=== PATIENT | female | born 1980 | race Two or more races ===

== ENCOUNTER 2019-10-11 08:15 | Inpatient (IN) | payer OTHER ==
[~2019-10-11] VITALS: Ht 170.2 cm; Wt 3.6 kg
[2019-10-14] MEDS ORDERED: PRENATAL CAPLE1 EAC1 PO (06:31)
[2019-10-14] MEDS ORDERED: CHILDREN'S ASPI81 MG PO (06:32)
[2019-10-17] MEDS ORDERED: COLACE100 MG PO (18:14)
[2019-10-17] MEDS ORDERED: IBU800 MG PO (18:14)
[2019-10-17] MEDS ORDERED: SIMETHICONE125 M1 PO (18:15)
== END 2019-10-17 18:22 | DRG 785 ==
LOC: O/R 10-14 05:45 → OB/GYN 10-14 05:45 → LDR 10-14 07:15 → OB/GYN 10-14 13:52
PROVIDERS: ADMIT Specialist
PROC: 0UB70ZZ Excision of Bilateral Fallopian Tubes, Open Approach (ICD-10-PCS; 2019-10-14)
PROC: 4A1HXCZ Monitoring of Products of Conception, Cardiac Rate, External Approach (ICD-10-PCS; 2019-10-14)
PROC: 10D00Z1 Extraction of Products of Conception, Low, Open Approach (ICD-10-PCS; principal; 2019-10-14 07:15)
DX: O82 Encounter for cesarean delivery without indication (principal); O34.211 Maternal care for low transverse scar from previous cesarean delivery; O99.213 Obesity complicating pregnancy, third trimester; E66.01 Morbid (severe) obesity due to excess calories; Z22.330 Carrier of Group B streptococcus; Z30.2 Encounter for sterilization; Z3A.39 39 weeks gestation of pregnancy; Z37.0 Single live birth

== ENCOUNTER 2024-06-27 12:17 | Emergency (ER) | payer OTHER ==
[~2024-06-27] VITALS: Ht 170.2 cm; Wt 156.9 kg
[~2024-06-27 12:17] MED LIST: CHILDREN'S ASPI81 MG PO; COLACE100 MG PO; IBU800 MG PO; PRENATAL CAPLE1 EAC1 PO; SIMETHICONE125 M1 PO
[2024-06-27 17:52] LABS: HEMATOCRIT 34.3 % (36.0-45.00); HEMOGLOBIN 10.6 g/dL (12.0-15.00); MEAN CELL VOLUME 73.3 fL (80.00-100.00); MEAN CORPUSCULAR HEMOGLOBIN 22.7 pg (27.00-32.0); MEAN CORPUSCULAR HGB CONC 30.9 g/dl (32.0-36.0); PLATELET COUNT 291 K/uL (150-450); RED BLOOD COUNT 4.68 M/uL (4.00-6.00)
[2024-06-27] MEDS ORDERED: GILTUSS COUGH-118 M1 PO (18:59)
[2024-06-27] MEDS ORDERED: ACETAMINOPHEN500 M1 PO (18:59)
== END 2024-06-27 19:16 | disposition home or self-care (01) ==
LOC: ER 12:19
PROVIDERS: Preventive Medicine Public Health & General Preventive Medicine
DX: B34.9 Viral infection, unspecified (principal); R53.81 Other malaise; Z20.822 Contact with and (suspected) exposure to COVID-19; Z91.013 Allergy to seafood; Z91.018 Allergy to other foods; Z91.040 Latex allergy status